=== PATIENT | female | born 1965 | race Caucasian/White ===

== ENCOUNTER 2017-02-22 15:52 | Inpatient (IN) | payer OTHER ==
[~2017-02-22] VITALS: Ht 165.1 cm; Wt 79.4 kg
[2017-02-22 17:30] LABS: BASOPHIL % 0.1 % (0-2); PLATELET COUNT 395 x10^3mcL (130-400)
[2017-02-22 17:34] LABS: RED CELL DISTRIBUTION WIDTH 16.8 % (11.5-14.5)
[2017-02-22 17:45] LABS: CALCIUM 8.8 mg/dL (8.5-10.1); CARBON DIOXIDE 32.5 mmol/L (21-32); CHLORIDE SERUM 109 mmol/L (98-107); CREATININE SERUM 0.6 mg/dL (0.6-1.0); GFR1 > 60 mL/min; GLUCOSE SERUM 76 mg/dL (74-106); POTASSIUM SERUM 3.9 mmol/L (3.5-5.1); SODIUM SERUM 145 mmol/L (136-145)
[2017-02-22 17:48] LABS: ALKALINE PHOSPHATASE 121 U/L (46-116); ALT/SGPT 16 U/L (14-59); AST/SGOT 14 U/L (15-37); BILIRUBIN TOTAL 0.2 mg/dL (0.20-1.00); TOTAL PROTEIN, SERUM 6.5 g/dL (6.4-8.2)
[2017-02-22 17:50] LABS: ALBUMIN 3.1 g/dL (3.4-5.0)
[2017-02-22] MEDS ORDERED: ALENDRONATE SOD70 M2 PO (18:21)
[2017-02-22] MEDS ORDERED: ABILIFY5 M1 PO (18:21)
[2017-02-22] MEDS ORDERED: ASPIR 8181 MG PO (18:21)
[2017-02-22] MEDS ORDERED: MIANS (18:22)
[2017-02-22] MEDS ORDERED: CLONAZEPAM0.5 M2 PO (18:22)
[2017-02-22] MEDS ORDERED: COLACE100 MG PO (18:22)
[2017-02-22] MEDS ORDERED: CLOPIDOGREL75 M1 PO (18:22)
[2017-02-22] MEDS ORDERED: CALCIUM CARBON600 MG PO (18:22)
[2017-02-22] MEDS ORDERED: ESCITALOPRAM20 M1 PO (18:23)
[2017-02-22] MEDS ORDERED: CLARITIN10 MG PO (18:23)
[2017-02-22] MEDS ORDERED: SYNTHROID0.15 MG PO (18:23)
[2017-02-22] MEDS ORDERED: LITHIUM CARBON300 MG PO (18:23)
[2017-02-22] MEDS ORDERED: MIRTAZAPINE45 M1 PO (18:24)
[2017-02-22] MEDS ORDERED: OLANZAPINE20 M1 PO (18:24)
[2017-02-22] MEDS ORDERED: GOOD SENSE OMEP20 MG PO (18:24)
[2017-02-22] MEDS ORDERED: DILANTIN100 MG PO (18:25)
[2017-02-22] MEDS ORDERED: TRILEPTAL150 MG PO (18:25)
[2017-02-22] MEDS ORDERED: CARAFATE1 GM PO (18:26)
[2017-02-22] MEDS ORDERED: TAMOXIFEN CITRA20 MG PO (18:26)
[2017-02-22] MEDS ORDERED: PROPRANOLOL HCL20 MG PO (18:26)
[2017-02-22] MEDS ORDERED: RESTORIL15 MG PO (18:27)
[2017-02-22] MEDS ORDERED: BENADRYL ALLERG25 M1 PO (18:29)
[2017-02-22] MEDS ORDERED: EUCERIN CREME120 GM TOP (18:29)
[2017-02-22] MEDS ORDERED: VITAMIN D32000 I2 PO (18:29)
[2017-02-22] MEDS ORDERED: IBUPROFEN400 MG PO ×2 (18:30→18:31)
[2017-02-22] MEDS ORDERED: LIDODERM51 TOP (18:30)
[2017-02-22 19:35] VITALS: BP 122/68
[2017-02-22 20:56] LABS: CK-MB < 0.5 ng/mL (0-3.6); CREATINE KINASE 58 U/L (26-192)
[2017-02-22 21:04] LABS: AMYLASE 61 U/L (25-115); LIPASE 177 IU/L (73-393)
[2017-02-23 05:40] VITALS: BP 93/54
[2017-02-23 06:23] LABS: PLATELET COUNT 359 x10^3mcL (130-400)
[2017-02-23 06:32] LABS: BASOPHIL % 0 % (0-2); RED CELL DISTRIBUTION WIDTH 17.3 % (11.5-14.5)
[2017-02-23 06:58] LABS: CALCIUM 8.4 mg/dL (8.5-10.1); CARBON DIOXIDE 30.9 mmol/L (21-32); CHLORIDE SERUM 109 mmol/L (98-107); CHOLESTEROL 153 mg/dL (<200); CHOLESTEROL/HDL RATIO 1.7; CREATININE SERUM 0.7 mg/dL (0.6-1.0); GFR1 > 60 mL/min; GLUCOSE SERUM 74 mg/dL (74-106); HDL CHOLESTEROL 91 mg/dL (40-60); PHOSPHOROUS 4.9 mg/dL (2.5-4.9); POTASSIUM SERUM 4.3 mmol/L (3.5-5.1); SODIUM SERUM 145 mmol/L (136-145); TRIGLYCERIDES 60 mg/dL (<150)
[2017-02-23 09:52] VITALS: BP 106/60
[2017-02-23 14:31] VITALS: BP 116/62
[2017-02-23 18:07] VITALS: BP 99/57
[2017-02-23 21:43] VITALS: BP 92/64
[2017-02-24 05:59] VITALS: BP 97/61
[2017-02-24 07:45] LABS: BASOPHIL % 0.2 % (0-2); PLATELET COUNT 377 x10^3mcL (130-400)
[2017-02-24 08:01] LABS: CALCIUM 8.6 mg/dL (8.5-10.1); CARBON DIOXIDE 31.2 mmol/L (21-32); CHLORIDE SERUM 110 mmol/L (98-107); CREATININE SERUM 0.6 mg/dL (0.6-1.0); GFR1 > 60 mL/min; GLUCOSE SERUM 83 mg/dL (74-106); POTASSIUM SERUM 3.9 mmol/L (3.5-5.1); SODIUM SERUM 145 mmol/L (136-145)
[2017-02-24 09:31] VITALS: BP 140/48
[2017-02-24 13:23] VITALS: BP 140/48
[2017-02-24 13:25] VITALS: BP 106/67
[2017-02-24] MEDS ORDERED: HIBICLENS118 ML TOP (13:45)
[2017-02-24] MEDS ORDERED: BACO TOP (13:45)
== END 2017-02-24 15:35 | DRG 243 ==
LOC: ED 15:52 → DU 18:07
PROVIDERS: Emergency Medicine; Family Medicine; ADMIT Family Medicine
DX: K21.9 Gastro-esophageal reflux disease without esophagitis (principal); C50.919 Malignant neoplasm of unspecified site of unspecified female breast; F31.5 Bipolar disorder, current episode depressed, severe, with psychotic features; I10 Essential (primary) hypertension; I25.10 Atherosclerotic heart disease of native coronary artery without angina pectoris; I25.2 Old myocardial infarction; Z68.29 Body mass index [BMI] 29.0-29.9, adult; Z95.1 Presence of aortocoronary bypass graft; Z79.810 Long term (current) use of selective estrogen receptor modulators (SERMs); Z90.49 Acquired absence of other specified parts of digestive tract; Z88.0 Allergy status to penicillin; Z88.8 Allergy status to other drugs, medicaments and biological substances
CPT/HCPCS: 80307; 83880; 97116-GP; 97530-GP; J1885; J2060; J2270; J2405; J7030; Q0092